=== PATIENT | male | born 1955 | race Caucasian/White ===

== ENCOUNTER 2018-06-15 18:31 | Emergency (ER) | payer OTHER ==
[2018-06-15] MEDS ORDERED: Bacitracin Zinc 1 Packet ONE (19:26)
[2018-06-15] MEDS ORDERED: Adacel (T-DAP) 0.5 ML SYRINGE ONE (19:29)
== END 2018-06-15 19:56 | disposition home or self-care (01) ==
LOC: SCSER 18:31
DX: S81.812A Laceration without foreign body, left lower leg, initial encounter (principal); J45.909 Unspecified asthma, uncomplicated; I10 Essential (primary) hypertension; F90.9 Attention-deficit hyperactivity disorder, unspecified type; Z79.899 Other long term (current) drug therapy; Z87.442 Personal history of urinary calculi; W26.0XXA Contact with knife, initial encounter
CPT/HCPCS: 12001; 90471; 90715

== ENCOUNTER 2022-06-04 06:04 | Day surgery (SDC) | payer MEDICARE, BC ==
[2022-06-02 12:43] VITALS: BMI 30.1
[~2022-06-04 06:04] MED LIST: EPINEPHrine 0.3 MG in Ophthalmic Irrigation Solution 500 ML IRR SCH
[2022-06-04] MEDS ORDERED: Cyclopentolate 1% Opth Drop 2 ML BOT ONE (06:15)
[2022-06-04] MEDS ORDERED: Phenylephrine 2.5% Ophth Soln 5 ML BOT ONE (06:15)
[2022-06-04] MEDS ORDERED: Midazolam HCl 2 mg/2 ml Vial ONE (06:28)
[2022-06-04] MEDS ORDERED: fentaNYL PF 100 MCG/2 ML SYRINGE ONE (06:29)
[2022-06-04] MEDS ORDERED: PROPOFOL 20 ML ONE (06:29)
[2022-06-04] MEDS ORDERED: CEFAZOLIN 1 GM VIAL ONE (07:20)
[2022-06-04] MEDS ORDERED: Maxitrol 0.1% Opth Oint 3.5 GM TUBE ONE (07:20)
[2022-06-04] MEDS ORDERED: Lidocaine 1% PF 5 ML VIAL ONE (07:20)
[2022-06-04] MEDS ORDERED: Triamcinolone 40 MG/ML VIAL ONE (07:20)
== END 2022-06-04 08:40 | disposition home or self-care (01) ==
LOC: SDC 06:04
PROVIDERS: ATTEND Ophthalmology Retina Specialist
PROC: 08T43ZZ Resection of Right Vitreous, Percutaneous Approach (ICD-10-PCS; principal; 2022-06-04)
DX: H43.391 Other vitreous opacities, right eye (principal); Z98.42 Cataract extraction status, left eye; Z98.41 Cataract extraction status, right eye; Z98.890 Other specified postprocedural states; Z79.1 Long term (current) use of non-steroidal anti-inflammatories (NSAID); Z79.899 Other long term (current) drug therapy; Z88.2 Allergy status to sulfonamides
CPT/HCPCS: J0171; J0690; J2250; J2704; J3301

== ENCOUNTER 2022-07-23 06:03 | Day surgery (SDC) | payer MEDICARE, BC ==
[2022-07-22 09:22] VITALS: BMI 30.5
[2022-07-23] MEDS ORDERED: Cyclopentolate 1% Opth Drop 2 ML BOT ONE (06:16)
[2022-07-23] MEDS ORDERED: Phenylephrine 2.5% Ophth Soln 5 ML BOT ONE (06:16)
[2022-07-23] MEDS ORDERED: Midazolam HCl 2 mg/2 ml Vial ONE (06:22)
[2022-07-23] MEDS ORDERED: fentaNYL 50 mcg/mL 1 mL Vial ONE (06:22)
[2022-07-23] MEDS ORDERED: PROPOFOL 20 ML ONE (06:22)
[2022-07-23] MEDS ORDERED: Lidocaine 4% PF 5 ML AMP ONE (07:09)
[2022-07-23] MEDS ORDERED: Bupivacaine 0.75% 10 ML VIAL ONE (07:09)
== END 2022-07-23 08:10 | disposition home or self-care (01) ==
LOC: SDC 06:03
PROVIDERS: ATTEND Ophthalmology Retina Specialist
PROC: 08T53ZZ Resection of Left Vitreous, Percutaneous Approach (ICD-10-PCS; principal; 2022-07-23)
PROC: 08NF3ZZ Release Left Retina, Percutaneous Approach (ICD-10-PCS; 2022-07-23)
DX: H43.312 Vitreous membranes and strands, left eye (principal); Z79.1 Long term (current) use of non-steroidal anti-inflammatories (NSAID); Z79.899 Other long term (current) drug therapy; Z88.2 Allergy status to sulfonamides; Z98.41 Cataract extraction status, right eye; Z98.42 Cataract extraction status, left eye; Z96.1 Presence of intraocular lens
CPT/HCPCS: 67041; J3010; J0171; J2250; J2704; J3490

== ENCOUNTER 2022-12-08 14:06 | Outpatient (CLI) | payer MEDICARE, BC ==
[2022-12-08 15:08] LABS: #Eosinphils 0.1 10x3/uL (0.0-0.5); #Monocytes 0.6 10x3/uL (0.0-1.1); #Neutrophils 5.4 10x3/uL (1.5-8.4); %Basophils 0.4 % (0.0-2.0); %Eosinophils 1.3 % (0.0-6.0); %Lymphocytes 20.5 % (18.0-47.0); %Monocytes 8.2 % (0.0-10.0); %Neutrophils 69.2 % (40.0-75.0); Hematocrit 44.3 % (38.8-50.0); Hemoglobin 15.3 g/dL (13.5-17.5); Mean Corpuscular HGB CONC 34.5 g/dL (32.0-36.0); Mean Corpuscular Hemoglobin 30.1 pg (27.0-33.0); Mean Corpuscular Volume 87.2 fl (81.2-95.1); Mean Platelet Volume 9.8 fl (7.4-10.4); Platelet Count 283 10x3/uL (150-450); RBC Distribution Width 11.9 % (11.5-14.5); Red Blood Cell (RBC) Count 5.08 10x6/uL (4.32-5.72); White Blood Cell (WBC) Count 7.8 10x3/uL (3.5-10.5)
[2022-12-08 15:30] LABS: ALT (SGPT) 39 U/L (8-55); AST (SGOT) 27 U/L (5-34); Albumin 4.4 g/dL (3.4-4.8); Alkaline Phosphatase 51 U/L (40-110); Anion Gap 12 mmol/L (10-20); BUN (Urea Nitrogen) 22 mg/dL (8.4-25.7); Bilirubin, Total 0.7 mg/dL (0.2-1.2); Calc. Creatinine Clearance 0 mL/min (70-130); Calcium 9.5 mg/dL (7.8-10.44); Carbon Dioxide 25 mmol/L (23-31); Chloride 104 mmol/L (98-107); Estimated GFR 85; Globulin 2.3 g/dL (2.4-3.5); Glucose 114 mg/dL (80-115); Potassium 3.8 mmol/L (3.5-5.1); Protein, Total 6.7 g/dL (5.8-8.1); Sodium 137 mmol/L (136-145)
== END 2022-12-08 14:07 | disposition home or self-care (01) ==
LOC: LABBT 14:06
PROVIDERS: ATTEND Surgery
DX: Z01.818 Encounter for other preprocedural examination (principal); D17.21 Benign lipomatous neoplasm of skin and subcutaneous tissue of right arm; L72.3 Sebaceous cyst
CPT/HCPCS: 80053; 85025; 93005; 93010

== ENCOUNTER 2022-12-14 08:41 | Day surgery (SDC) | payer MEDICARE, BC ==
[2022-12-08 14:53] VITALS: BMI 31.7
[2022-12-14] MEDS ORDERED: Bupivacaine 0.25% HCL 30 ML VIAL ONE (09:49)
[2022-12-14] MEDS ORDERED: EPINEPHrine 1 MG/ML AMP ONE (09:49)
[2022-12-14] MEDS ORDERED: fentaNYL PF 100 MCG/2 ML SYRINGE ONE (10:22)
[2022-12-14] MEDS ORDERED: CEFAZOLIN 2 GM VIAL ONE (10:27)
[2022-12-14] MEDS ORDERED: Sodium Chloride 0.9% 100 ML ONE (10:27)
[2022-12-14] MEDS ORDERED: Lidocaine 2% PF 5 ML VIAL ONE (10:38)
[2022-12-14] MEDS ORDERED: Lidocaine 1% PF 5 ML VIAL ONE (10:46)
[2022-12-14] MEDS ORDERED: PHENYLEPHRINE-NS 100 MCG/ML 10 ML SYRINGE ONE (10:46)
[2022-12-14] MEDS ORDERED: ePHEDrine Sulfate 50 MG/10 ML VIAL ONE (10:46)
[2022-12-14] MEDS ORDERED: PROPOFOL 200 MG/20 ML VIAL ONE (10:46)
[2022-12-14] MEDS ORDERED: HYDROcodone/Acetaminophen 5/325 mg Tablet ONE (13:01)
== END 2022-12-14 13:28 | disposition home or self-care (01) ==
LOC: SDC 08:41
PROVIDERS: ATTEND Surgery
PROC: 0HB4XZZ Excision of Neck Skin, External Approach (ICD-10-PCS; principal; 2022-12-14)
PROC: 0HB6XZZ Excision of Back Skin, External Approach (ICD-10-PCS; 2022-12-14)
DX: D17.9 Benign lipomatous neoplasm, unspecified (principal); L72.0 Epidermal cyst; L72.3 Sebaceous cyst; I10 Essential (primary) hypertension; H26.9 Unspecified cataract; G43.909 Migraine, unspecified, not intractable, without status migrainosus; Z79.899 Other long term (current) drug therapy; Z88.2 Allergy status to sulfonamides; Z91.018 Allergy to other foods
CPT/HCPCS: 88304; J0171; J2001; J2704; J3490; S0020